=== PATIENT | female | born 1980 | race Caucasian/White ===

== ENCOUNTER → 2019-08-27 | Outpatient (CLI) | payer MEDICARE ==
--- NOTE | 2019-08-27 14:25 | US ---
EXAMINATION TYPE: US transvaginal DATE OF EXAM: 08/27/2019 COMPARISON: US 04/04/2016 CLINICAL HISTORY: E28.2 Polycystic ovarian syndrome. Left ovary surgically absent. Pain during interc ourse TECHNIQUE: . Transvaginal sonographic images of the pelvis were acquired. Date of LMP: Irregular cycles EXAM MEASUREMENTS: Uterus: 7.7 x 3.7 x 3.5 cm Endometrial Stripe: 1.0 cm Right Ovary: 4.2 x 2.3 x 2.2 cm Left Ovary: Surgically absent 1. Uterus: Anteverted Heterogeneous 2. Endometrium: wnl 3. Right Ovary: wnl 4. Left Ovary: Surgically absent 5. Bilateral Adnexa: wnl 6. Posterior cul-de-sac: wnl Heterogeneous anteverted uterus with endometrial stripe measuring 10 mm within normal limits. Joint p hase of menstrual cycle. No free fluid. Right ovary slightly larger versus prior study without defini tive focal lesion. Left ovary surgically absent similar to prior. IMPRESSION: Right ovary is larger in size versus prior study without definitive focal mass. No promin ent follicles or simple cysts are identified.
== END | disposition home or self-care (01) ==
LOC: RADUSWWP 13:17
PROVIDERS: ATTEND Family Medicine
DX: E28.2 Polycystic ovarian syndrome (principal)
CPT/HCPCS: 76830

== ENCOUNTER → 2020-02-09 | Outpatient (CLI) | payer MEDICARE ==
[2020-02-09 13:46] LABS: HCT 44.3 % (34.0-46.0); HGB 14.2 gm/dL (11.4-16.0); MCH 29.3 pg (25.0-35.0); MCHC 32.1 g/dL (31.0-37.0); MCV 91.4 fL (80.0-100.0); Mean Platelet Volume 8.1; Platelet Count 242 k/uL (150-450); RBC 4.85 m/uL (3.80-5.40); RDW 12.9 % (11.5-15.5); WBC 7.8 k/uL (3.8-10.6)
[2020-02-09 18:53] LABS: African American GFR (CKD) 109.2 (60.0-200.0); Albumin 4.4 g/dL (3.80-4.90); Albumin/Globulin Ratio 2.2 (1.60-3.17); Anion Gap 9.6 mmol/L (4.00-12.00); BUN/Creat Ratio 12.5 Ratio (12.00-20.00); Calcium 9.3 mg/dL (8.7-10.3); Carbon Dioxide 26.4 mmol/L (21.6-31.8); Non-African American GFR(CKD) 94.2 (60.0-200.0); Potassium 4.5 mmol/L (3.5-5.5); Total Bilirubin 0.7 mg/dL (0.2-1.2); Total Protein 6.4 g/dL (6.2-8.2)
[2020-02-09 19:04] LABS: Prolactin 10.8 ng/mL (2.8-29.2)
[2020-02-09 20:16] LABS: Thyroid Peroxidase Antibodies 3388.8 U/mL (0.0-60.0)
== END | disposition home or self-care (01) ==
LOC: LABWHC1 12:34
PROVIDERS: ATTEND Internal Medicine Endocrinology, Diabetes & Metabolism
DX: R53.83 Other fatigue (principal)
CPT/HCPCS: 36415; 80053; 82024; 82533; 82607; 84146; 84439; 84443; 84481; 85027; 86376

== ENCOUNTER → 2021-06-01 | Outpatient (CLI) | payer MEDICARE ==
--- NOTE | 2021-06-02 13:57 | MM ---
Reason for exam: screening (asymptomatic). Baseline mammogram. History: Patient is nulliparous. Family history of breast cancer in mother at age 55. Physical Findings: Nurse did not find any significant physical abnormalities on exam. MG 3D Screening Mammo W/Cad Bilateral CC, MLO, and XCCL view(s) were taken. There are scattered fibroglandular densities. There is no discrete abnormality. ASSESSMENT: Benign, BI-RAD 2 RECOMMENDATION: Routine screening mammogram of both breasts in 1 year.
== END | disposition home or self-care (01) ==
LOC: RADMAMWWP 13:34
PROVIDERS: ATTEND Obstetrics & Gynecology
DX: Z12.31 Encounter for screening mammogram for malignant neoplasm of breast (principal); Z80.3 Family history of malignant neoplasm of breast
CPT/HCPCS: 77063; 77067

== ENCOUNTER → 2024-01-29 | Outpatient (CLI) | payer MEDICARE ==
[2024-01-29 15:47] LABS: Basophils # (A) 0.11 X 10*3/uL (0.00-0.10); Basophils % (A) 1.1 %; Eosinophils # (A) 0.54 X 10*3/uL (0.04-0.35); Eosinophils % (A) 5.5 %; HCT 41.3 % (37.2-46.3); HGB 13.7 g/dL (12.0-15.0); Lymphocytes # (A) 3.16 X 10*3/uL (0.90-5.00); Lymphocytes % (A) 32.3 %; MCH 29.5 pg (27.0-32.0); MCHC 33.2 g/dL (32.0-37.0); Mean Platelet Volume 10.8 FL (9.5-12.2); Monocytes # (A) 0.56 X 10*3/uL (0.20-1.00); Monocytes % (A) 5.7 %; NRBC Per 100 WBC 0 X 10*3/uL (0.00-0.01); Neutrophils # (A) 5.37 X 10*3/uL (1.80-7.70); Platelet Count 277 X 10*3/uL (140-440); RBC 4.64 X 10*6/uL (4.10-5.20); RDW 12.6 % (11.5-14.5); WBC 9.78 X 10*3/uL (4.50-10.00)
== END | disposition home or self-care (01) ==
LOC: LABPAT 12:35
PROVIDERS: ATTEND Surgery Plastic and Reconstructive Surgery
DX: Z01.812 Encounter for preprocedural laboratory examination (principal); K80.50 Calculus of bile duct without cholangitis or cholecystitis without obstruction
CPT/HCPCS: 85025

== ENCOUNTER → 2024-07-28 | Day surgery (SDC) | payer MEDICARE ==
[2024-07-25 11:17] VITALS: BMI 45.4
[~2024-07-28] MED LIST: LACTATED RINGERS 1,000 ML IV SCH; LIDOCAINE 1% (10MG/ML) FOR IV START INTRADERMA PRN; PROPOFOL 10 MG/ML 20 ML VIAL IV ONE
[2024-07-28 10:55] VITALS: RESP 16; TEMP 97.2
[2024-07-28] MEDS: IV FLUID CONTINUATION 1,000 ML IV ONE (11:03)
--- NOTE | 2024-07-28 11:38 | P.GSHP ---
History of Present Illness H&P Date: 07/28/24 Chief Complaint: Gerd This is a 44-year-old female complaints of GERD. Patient presents today for EGD. Past Medical History Past Medical History: Fibromyalgia, GERD/Reflux, Osteoarthritis (OA), Skin Disorder, Thyroid Disorder Additional Past Medical History / Comment(s): "Arthritis." Harry's disease. Eczema History of Any Multi-Drug Resistant Organisms: None Reported Past Surgical History: Cholecystectomy Additional Past Surgical History / Comment(s): large cyst removed from lt ovary- lt Oophorectomy. "Tubes in ears when I was younger." Past Anesthesia/Blood Transfusion Reactions: No Reported Reaction Additional Past Anesthesia/Blood Transfusion Reaction / Comment(s): Pt has paperwork refusing" any Whole blood or partial blood transfusion products"Pt to bring paperwork to hospital.-Jahovah Witness Smoking Status: Former smoker - Past Family History Mother Family Medical History: Cancer Additional Family Medical History / Comment(s): breast cancer Father Family Medical History: Cancer Additional Family Medical History / Comment(s): gallbladder or bladder cancer. Medications and Allergies Home Medications Medication Instructions Recorded Confirmed Type Escitalopram [Lexapro] 20 mg PO HS 01/29/24 07/28/24 History Famotidine [Pepcid] 20 mg PO HS PRN 01/29/24 07/28/24 History L.acidoph,Paracasei, B.lactis 1 each PO DAILY #0 01/29/24 07/28/24 History [Probiotic] Levothyroxine Sodium [Synthroid] 150 mcg PO QAM 01/29/24 07/28/24 History Multivitamins, Thera [Multivitamin 1 tab PO DAILY #0 01/29/24 07/25/24 History (formulary)] clonazePAM [KlonoPIN] 0.5 mg PO QAM PRN 01/29/24 07/28/24 History norethindrone-e.estradioL-iron 1 tab PO HS 07/25/24 07/28/24 History [Nany 24 Fe 1 mg-20 Mcg Tablet] Allergies Allergy/AdvReac Type Severity Reaction Status Date / Time latex AdvReac "Red itchy Verified 07/28/24 10:48 skin" Surgical - Exam Vital Signs Temp Pulse Resp Pulse Ox 97.2 F L 73 16 94 L 07/28/24 10:54 07/28/24 10:54 07/28/24 10:54 07/28/24 10:54 - General Morbidly obese, BMI 47 well developed - Eyes PERRL - ENT normal pinna - Neck no masses - Respiratory normal expansion - Cardiovascular Rhythm: regular - Abdomen Abdomen: soft, non tender Assessment and Plan Plan: Gerd. Will perform EGD.
--- NOTE | 2024-07-28 11:48 | P.OP ---
Date of Procedure: 07/28/24 Preoperative Diagnosis: gerd Postoperative Diagnosis: Antral gastritis Procedure(s) Performed: EGD Anesthesia: MAC Surgeon: Kit Serrano Pathology: other (Antral) Condition: stable Disposition: PACU Description of Procedure: The patient was placed on the endoscopy table in the lateral position. She r eceived IV sedation. The gas was placed oropharynx passed in the esophagus and stomach. Scope was in place through the pylorus. The first and second portion of the duodenum appeared normal. Scope was then brought back to the antrum this appeared mildly inflamed. The area was biopsied. The scope was then retroflexed in the remainder of stomach are normal. The GE junction was at 40 cm. There was no significant hiatal hernia. The distal esophagus appeared normal. The proximal esophagus appeared normal. Scope withdrawn for the patient.
[2024-07-28 12:14] VITALS: BP 125/78; PULSE 75
== END ==
LOC: ORWHC2ENDO 10:24
PROVIDERS: ATTEND Surgery
DX: K29.70 Gastritis, unspecified, without bleeding (principal); K31.89 Other diseases of stomach and duodenum; K21.9 Gastro-esophageal reflux disease without esophagitis; M79.7 Fibromyalgia; E06.3 Autoimmune thyroiditis; E03.9 Hypothyroidism, unspecified; F41.9 Anxiety disorder, unspecified; F32.A Depression, unspecified; M19.90 Unspecified osteoarthritis, unspecified site; L30.9 Dermatitis, unspecified; E66.01 Morbid (severe) obesity due to excess calories; Z68.42 Body mass index [BMI] 45.0-49.9, adult; Z90.49 Acquired absence of other specified parts of digestive tract; Z79.890 Hormone replacement therapy; Z79.899 Other long term (current) drug therapy; Z87.891 Personal history of nicotine dependence; Z91.040 Latex allergy status
CPT/HCPCS: 81025; 88305; 43239; J2704